=== PATIENT | male | born 1995 | race African-American/Black ===

== ENCOUNTER 2017-10-26 10:53 | Emergency (ER) | payer BC | END 2017-10-26 12:04 | disposition left against medical advice (07) | LOC: ED 10:53 | DX: Z53.21 Procedure and treatment not carried out due to patient leaving prior to being seen by health care provider (principal) ==

== ENCOUNTER 2017-10-26 12:17 | Emergency (ER) | payer BC ==
[~2017-10-26] VITALS: Ht 167.6 cm; Wt 57.6 kg
[2017-10-26 12:19] VITALS: BP 135/100; Ht 167.6 cm; Wt 57.6 kg
== END 2017-10-26 14:35 | disposition left against medical advice (07) ==
LOC: ED 12:17
DX: Z53.21 Procedure and treatment not carried out due to patient leaving prior to being seen by health care provider (principal)

== ENCOUNTER 2020-08-15 17:00 | Emergency (ER) | payer SELFPAY ==
[~2020-08-15] VITALS: Ht 172.7 cm; Wt 59.0 kg
[2020-08-15 17:01] VITALS: Ht 172.7 cm; Wt 59.0 kg
[2020-08-15 18:30] VITALS: BP 126/76
== END 2020-08-15 18:25 | disposition home or self-care (01) ==
LOC: ED 17:00
DX: R05 Cough (principal); Z20.828 Contact with and (suspected) exposure to other viral communicable diseases
CPT/HCPCS: U0003-CS